=== PATIENT | female | born 2005 | race Caucasian/White ===

== ENCOUNTER → 2024-08-28 13:28 | Outpatient (REF) | payer OTHER, SELFPAY | LOC: HWRAD 13:28 | PROVIDERS: ATTENDING PHYSICIAN Nurse Practitioner Family; FAMILY PHYSICIAN Nurse Practitioner Adult Health | DX: N91.2 Amenorrhea, unspecified (principal) | CPT/HCPCS: 76830; 76856 ==

== ENCOUNTER 2024-10-28 08:37 | Outpatient (RCR) | payer OTHER, SELFPAY ==
[2024-10-28 09:11] VITALS: BP 138/65
[2024-10-28] MEDS: CORTROSYN 1 MG IV (09:20)
== END 2024-10-29 11:19 | disposition home or self-care (01) ==
LOC: OID 08:37
PROVIDERS: ATTENDING PHYSICIAN Internal Medicine Endocrinology, Diabetes & Metabolism; FAMILY PHYSICIAN Nurse Practitioner Adult Health
DX: E28.2 Polycystic ovarian syndrome (principal); E25.9 Adrenogenital disorder, unspecified
CPT/HCPCS: 36415; 83498; 96374